=== PATIENT | male | born 1990 ===

== ENCOUNTER 2017-07-20 13:29 | Emergency (ER) | payer OTHER ==
[2017-07-20 13:36] VITALS: O2SAT 98
[2017-07-20 13:39] VITALS: TEMP 97.8
--- NOTE | 2017-07-20 14:28 | ED PDOC ---
HPI: Chest Pain Time Seen by Provider: 07/20/17 13:42 Chief Complaint (Nursing): Chest Pain Chief Complaint (Provider): Chest Pain History Per: Patient History/Exam Limitations: no limitations Onset/Duration Of Symptoms: Days (yesterday) Current Symptoms Are (Timing): Constant Associated Symptoms: denies: Dyspnea Exacerbating Factors: Movement (Movement of torso) Additional Complaint(s): Patient is a 27 y/o male with no past medical history who presents to the ED complaining of left sided chest pain since yesterday that is constant and non- radiating. He reports the pain is slightly worse when he touches the area or moves his torso, and says he works out in the gym and lifts weights regularly. He denies any difficulty breathing, cough, palpitations, leg swelling, vomiting , arm pain, back pain, or syncope. Patient denies nay recent travel. PCP: FAMILY PROVIDER, NO Past Medical History Reviewed: Historical Data, Nursing Documentation, Vital Signs Vital Signs: Last Vital Signs Temp 97.8 F 07/20/17 13:38 Pulse 53 L 07/20/17 14:39 Resp 20 07/20/17 13:38 BP 127/46 L 07/20/17 13:38 Pulse Ox 98 07/20/17 14:39 - Medical History PMH: No Chronic Diseases - Surgical History Surgical History: No Surg Hx - Family History Family History: States: No Known Family Hx - Social History Current smoker - smoking cessation education provided: No Alcohol: None Drugs: Denies - Allergies Allergies/Adverse Reactions: Allergies Allergy/AdvReac Type Severity Reaction Status Date / Time No Known Allergies Allergy Verified 07/20/17 13:32 LISANDRO Risk Score for UA/NSTEMI - LISANDRO Risk Score Age > 64: NO 3 or more CAD Risk Factors: NO Known CAD (Stenosis greater than 50%): NO Aspirin use in past 7 days: NO Severe Angina: NO EKG ST changes greater than 0.5mm: NO Positive Cardiac Marker: NO LISANDRO Score: 0 Risk %: 5% Wells Criteria for PE - Wells Criteria for Pulmonary Embolism Clinical Signs and Symptoms of DVT: No P.E is #1 Diagnosis, or Equally Likely: No Heart Rate >100: No Immobilization at least 3 days;Surgery previous 4 weeks: No Previous, objectively diagnosed PE or DVT: No Hemoptysis: No Malignancy w/treatment within 6 months, or palliative: No Total Score: 0 Review of Systems ROS Statement: Except As Marked, All Systems Reviewed And Found Negative Cardiovascular: Positive for: Chest Pain (left sided). Negative for: Palpitations Respiratory: Negative for: Cough, Shortness of Breath Gastrointestinal: Negative for: Vomiting Musculoskeletal: Negative for: Arm Pain, Back Pain Neurological: Positive for: Other (No syncope) Physical Exam - Reviewed Nursing Documentation Reviewed: Yes Vital Signs Reviewed: Yes - Physical Exam Appears: Positive for: No Acute Distress Head Exam: Positive for: ATRAUMATIC, NORMOCEPHALIC Skin: Positive for: Normal Color, Warm, Dry Eye Exam: Positive for: Normal appearance, EOMI, PERRL Neck: Positive for: Normal, Painless ROM, Supple Cardiovascular/Chest: Positive for: Regular Rate, Rhythm. Negative for: Murmur Respiratory: Positive for: Normal Breath Sounds. Negative for: Respiratory Distress Gastrointestinal/Abdominal: Positive for: Normal Exam, Soft. Negative for: Tenderness Back: Positive for: Normal Inspection. Negative for: L CVA Tenderness, R CVA Tenderness, Vertebral Tenderness Extremity: Positive for: Normal ROM. Negative for: Pedal Edema, Deformity Neurologic/Psych: Positive for: Alert, Oriented (x3). Negative for: Motor/ Sensory Deficits - ECG ECG Rhythm: Positive for: Normal QRS, Sinus Bradycardia. Negative for: ST/T Changes Rate: 53 O2 Sat by Pulse Oximetry: 98 (RA) Pulse Ox Interpretation: Normal Medical Decision Making Medical Decision Makin:04 Initial Impression: Chest pain Differential: Musculoskeletal pain, Costochondritis Initial Plan: --EKG --Chest X-Ray Scribe Attestation: Documented by Fabrizio Newell, acting as a scribe for Emma Us MD Provider Scribe Attestation: All medical record entries made by the Scribe were at my direction and personally dictated by me. I have reviewed the chart and agree that the record accurately reflects my personal performance of the history, physical exam, medical decision making, and the department course for this patient. I have also personally directed, reviewed, and agree with the discharge instructions and disposition. Disposition - Clinical Impression Clinical Impression: Chest pain Doctor Will See Patient In The: Office Counseled Patient/Family Regarding: Studies Performed, Diagnosis, Need For Followup - Disposition Referrals: [facility] [Outside] Disposition: Routine/Home Disposition Time: 14:56 Condition: GOOD Additional Instructions: Take advil for pain. Follow up with your PCP in 2-3 days. Instructions: Costochondritis (ED) Print Language: MALAY
[2017-07-20 15:14] VITALS: BP 128/60; PULSE 60; RESP 18
--- NOTE | 2017-07-20 15:39 | RAD ---
HISTORY: chest pain COMPARISON: No prior. TECHNIQUE: Chest PA and lateral FINDINGS: LUNGS: No active pulmonary disease. PLEURA: No significant pleural effusion identified. No pneumothorax apparent. CARDIOVASCULAR: Normal. OSSEOUS STRUCTURES: No significant abnormalities. VISUALIZED UPPER ABDOMEN: Normal. OTHER FINDINGS: None. IMPRESSION: No active disease.
--- NOTE | 2017-07-21 21:16 | CARD ---
APPROVED REPORT EKG Measurement Heart [id number] <Conclusion> Sinus bradycardia Incomplete right bundle branch block Borderline ECG
== END 2017-07-20 15:07 | disposition home or self-care (01) ==
LOC: H.ER 13:29
DX: R07.89 Other chest pain (principal)

== ENCOUNTER 2018-09-09 02:03 | Emergency (ER) | payer SELFPAY ==
[2018-09-09 03:56] VITALS: O2SAT 100
[2018-09-09] MEDS ORDERED: Tdap Vaccine 0.5 ml Vial (10-64 yrs) IM ONE ×2 (04:55→05:37)
[2018-09-09] MEDS ORDERED: PROPARACAINE/FLUORESCEIN SOD 100 DROP/5 ML BOTTLE OS STA (04:55)
[2018-09-09] MEDS ORDERED: Ciprofloxacin 0.3% OPTH SOLN OS STA (05:24)
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
[2018-09-09 06:19] VITALS: BP 116/64; PULSE 55; RESP 16; TEMP 98.1
== END 2018-09-09 06:18 | disposition home or self-care (01) ==
LOC: H.ER 02:03
DX: S05.02XA Injury of conjunctiva and corneal abrasion without foreign body, left eye, initial encounter (principal); W22.8XXA Striking against or struck by other objects, initial encounter; Y92.89 Other specified places as the place of occurrence of the external cause